=== PATIENT | male | born 1995 | race Hispanic/Latino ===

== ENCOUNTER 2017-07-14 19:41 | Emergency (ER) | payer OTHER ==
[2017-07-14] MEDS ORDERED: NA CHLORIDE 0.9% 1,000 ML ONE ×2 (21:25→22:15)
[2017-07-14 21:51] LABS: Absolute Lymphocytes (CBC) 2.1 K/uL (0.7-4.9); Absolute Monocytes 1.1 K/uL (0.1-1.3); Absolute Neutrophil 11.1 K/uL (1.8-8.0); Basophils % 0.7 % (0-1.3); Eosinophils % 0.1 % (0-4.4); Hematocrit 41.3 % (39.6-49.0); Lymphocytes % 14.3 % (15.3-44.8); MCH 27.6 pg (27.0-35.0); MCV 80.2 fL (80-100); MPV 10.3 fL (7.6-11.3); Monocytes % 7.4 % (3.3-12.3); RBC Red Blood Cell Count 5.16 M/uL (4.33-5.43)
[2017-07-14 22:04] LABS: Bicarbonate 24 mEq/L (21-31); Glucose Level 98 mg/dL (65-120); Lipase 16 U/L (22-51); Potassium 3.2 mEq/L (3.6-5.0); Sodium Level 136 mEq/L (135-145)
[2017-07-14] MEDS ORDERED: ACETAMINOPHEN 500 MG TAB ONE (22:09)
[2017-07-14] MEDS ORDERED: AZITHROMYCIN 500 MG/250 ML BAG ONE (22:09)
[2017-07-14] MEDS ORDERED: ONDANSETRON 4 MG/2 ML VIAL ONE (22:09)
[2017-07-14] MEDS ORDERED: CEFTRIAXONE/SWI 1gm 1 GM/10 ML SYR ONE (22:09)
[2017-07-14 22:11] LABS: ALT/SGPT 21 IU/L (10-60); AST/SGOT 21 IU/L (10-42); Albumin 4.6 g/dL (3.2-5.5); Alkaline Phosphatase 87 IU/L (42-121); Amylase Level 66 U/L (28-100); BUN Blood Urea Nitrogen 11 mg/dL (6-20); Bilirubin Direct 0.2 mg/dL (0-0.2); Protein, Total 8.6 g/dL (6.0-8.3)
[2017-07-14] MEDS ORDERED: PROMETHAZINE 25 MG/ML VIAL ONE (22:15)
--- NOTE | 2017-07-14 22:41 | RAD REPORT ---
EXAM DESCRIPTION: RAD - Chest Pa And Lat (2 Views) - 07/14/2017 10:06 pm CLINICAL HISTORY: Vomiting, chills COMPARISON: 04/26/2017 FINDINGS: Vague ill-defined opacity is present in the left lower lobe posteriorly, suspicious for de veloping pneumonia. The lungs are otherwise clear. The heart is normal in size. No displaced fracture s. IMPRESSION: Mild developing posterior left lower lobe pneumonia suspected.
[2017-07-14] MEDS ORDERED: KCL 20 MEQ/100 mL IVPB 20 MEQ/100 ML BAG IV ONE (22:54)
[2017-07-14 23:28] LABS: Urine Blood NEGATIVE (NEG); Urine Glucose NEGATIVE (NEG); Urine Protein 1+ (NEG); Urine Specific Gravity 1.015 (1.005-1.030); Urine pH 8.5 (5.0-7.0)
--- NOTE | 2017-07-14 23:53 | ER ---
Nurse's Notes [facility] Name: Torsten Palomo Age: 21 yrs Sex: Male : 1995 Arrival Date: 07/14/2017 Time: 19:44 Bed 5 Private MD: Diagnosis: Vomiting;Fever, unspecified;Cough;Pneumonia due to other specified bacteria;Hypokalemia;Elevated white blood cell count Presentation: 07/14 20:10 Presenting complaint: Patient states: Chills for 4 days, vomiting that started today. aj Transition of care: patient was not received from another setting of care. Onset of symptoms was July 14, 2017. Initial Sepsis Screen: Does the patient meet any 2 criteria? No. Patient's initial sepsis screen is negative. Does the patient have a suspected source of infection? No. Patient's initial sepsis screen is negative. Care prior to arrival: None. 20:10 Method Of Arrival: Ambulatory aj 20:10 Acuity: AZUCENA 3 aj Triage Assessment: 20:11 General: Appears in no apparent distress. comfortable, Behavior is calm, cooperative, aj appropriate for age. Pain: Complains of pain in abdomen Pain currently is 9 out of 10 on a pain scale. Neuro: Level of Consciousness is awake, alert, obeys commands, Oriented to person, place, time, situation, Appropriate for age. Respiratory: Reports cough that is Airway is patent Respiratory effort is even, unlabored, Respiratory pattern is regular, symmetrical. GI: Reports nausea, vomiting. Derm: Skin is intact, is healthy with good turgor, Skin is pink, warm \T\ dry. normal. Historical: - Allergies: 20:11 No Known Allergies; aj - Home Meds: 20:11 None [Active]; aj - PMHx: 20:11 None; aj - PSHx: 20:11 None; aj - Immunization history:: Adult Immunizations unknown. - Social history:: Smoking status: Patient/guardian denies using tobacco. Screenin:23 Abuse screen: Denies threats or abuse. Denies injuries from another. Nutritional bp screening: No deficits noted. Tuberculosis screening: No symptoms or risk factors identified. Fall Risk None identified. Assessment: 21:21 General: Appears in no apparent distress. uncomfortable, ill, slender, Behavior is bp calm, cooperative, appropriate for age. Pain: Complains of pain in epigastric area Pain currently is 9 out of 10 on a pain scale. Neuro: Level of Consciousness is awake, alert, obeys commands, Oriented to person, place, time, situation, Appropriate for age. Cardiovascular: No deficits noted. Respiratory: Airway is patent Respiratory effort is even, unlabored, Respiratory pattern is regular, symmetrical. GI: Abdomen is non-distended, Bowel sounds present X 4 quads. Abd is soft X 4 quads. : No signs and/or symptoms were reported regarding the genitourinary system. EENT: No deficits noted. Derm: No deficits noted. Musculoskeletal: Circulation, motion, and sensation intact. Range of motion: intact in all extremities. 07/15 00:05 Reassessment: PT D/C HOME AMBULATORY WITH FAMILY, DX WITH VOMITING AND PNEUMONIA. bp Vital Signs: 07/14 20:11 BP 134 / 79; Pulse 76; Resp 16; Temp 100.6; Pulse Ox 97% on R/A; Weight 74.84 kg; aj Height 6 ft. 1 in. (185.42 cm); Pain 9/10; 23:04 BP 104 / 61; Pulse 87; Resp 14; Pulse Ox 95% ; bp 23:32 BP 96 / 67; Pulse 83; Resp 14; Pulse Ox 96% ; bp 20:11 Body Mass Index 21.77 (74.84 kg, 185.42 cm) aj ED Course: 19:44 Patient arrived in ED. ds1 20:11 Triage completed. aj 20:11 Arm band placed on right wrist. Patient placed in waiting room, Patient notified of aj wait time. 21:18 Robert Ayala, RN is Primary Nurse. bp 21:23 Patient has correct armband on for positive identification. Bed in low position. Call bp light in reach. Side rails up X2. Adult w/ patient. 21:30 Inserted saline lock: 20 gauge in right forearm, using aseptic technique. Blood bp collected. 21:35 Ted Garcia MD is Attending Physician. janet 22:03 Patient moved to radiology via wheelchair. kc2 22:03 X-ray completed. Patient tolerated procedure well. kc2 22:03 Patient moved back from radiology. kc2 22:05 Chest Pa And Lat (2 Views) XRAY In Process Unspecified. EDMS 22:[address] via wheelchair. vr 22:58 CT Abd/Pelvis - W/Contrast: iv only In Process Unspecified. EDMS 07/15 00:05 No provider procedures requiring assistance completed. IV discontinued, intact, bp bleeding controlled, No redness/swelling at site. Pressure dressing applied. Administered Medications: 07/14 21:38 Drug: NS 0.9% 1000 ml Route: IV; Rate: 1 bolus; Site: right forearm; bp 22:10 Drug: Tylenol 1000 mg Route: PO; bp 22:38 Follow up: Response: Vomiting increased bp 22:10 Drug: Rocephin - (cefTRIAXone) 1 grams Route: IVPB; Infused Over: 30 mins; Site: right bp forearm; 22:10 Drug: Zithromax 500 mg Route: IVPB; Infused Over: 1 hrs; Site: right forearm; bp 22:10 Drug: Zofran 4 mg Route: IVP; Site: right forearm; bp 22:38 Follow up: Response: Nausea unchanged bp 22:30 Drug: Phenergan 12.5 mg Route: IVP; Site: right forearm; bp 22:39 Follow up: Response: Nausea is decreased bp 23:10 Drug: Potassium Chloride 20 mEq Route: IV; Rate: per protocol; Site: right forearm; bp 23:10 Drug: NS 0.9% 1000 ml Route: IV; Rate: 1 bolus; Site: right forearm; bp Outcome: 23:52 Discharge ordered by MD. gonzales 07/15 00:06 Discharged to home ambulatory, with family. bp Condition: stable Discharge instructions given to patient. 00:07 Patient left the ED. bp Signatures: Dispatcher [employer] EDID Katie Rucker RN RN aj Anderson, Corey, MD MD cha Sanford, Demi ds1 Kim Case Kelsie kc2 Robert Ayala RN RN bp
--- NOTE | 2017-07-14 23:53 | EDPHYS ---
Physician Documentation [facility] Name: Torsten Palomo Age: 21 yrs Sex: Male : 1995 Arrival Date: 07/14/2017 Time: 19:44 Bed 5 Private MD: ED Physician Ted Garcia HPI: 07/14 21:48 This 21 yrs old Male presents to ER via Ambulatory with complaints of janet Vomiting, Chills. 21:48 The patient presents to the emergency department with nausea, vomiting. Onset: The janet symptoms/episode began/occurred 4 day(s) ago. Possible causes: unknown. Historical: - Allergies: 20:11 No Known Allergies; aj - Home Meds: 20:11 None [Active]; aj - PMHx: 20:11 None; aj - PSHx: 20:11 None; aj - Immunization history:: Adult Immunizations unknown. - Social history:: Smoking status: Patient/guardian denies using tobacco. ROS: 21:49 Eyes: Negative for injury, pain, redness, and discharge, ENT: Negative for injury, janet pain, and discharge, Neck: Negative for injury, pain, and swelling, Cardiovascular: Negative for chest pain, palpitations, and edema, Abdomen/GI: Negative for abdominal pain, nausea, vomiting, diarrhea, and constipation, Back: Negative for injury and pain, : Negative for injury, bleeding, discharge, and swelling, MS/Extremity: Negative for injury and deformity, Skin: Negative for injury, rash, and discoloration, Neuro: Negative for headache, weakness, numbness, tingling, and seizure, Psych: Negative for depression, anxiety, suicide ideation, homicidal ideation, and hallucinations, Allergy/Immunology: Negative for hives, rash, and allergies, Endocrine: Negative for neck swelling, polydipsia, polyuria, polyphagia, and marked weight changes, Hematologic/Lymphatic: Negative for swollen nodes, abnormal bleeding, and unusual bruising. 21:49 Constitutional: Positive for fever. 21:49 Abdomen/GI: Positive for abdominal pain, nausea and vomiting. Exam: 21:49 Constitutional: This is a well developed, well nourished patient who is awake, alert, janet and in no acute distress. Head/Face: Normocephalic, atraumatic. Eyes: Pupils equal round and reactive to light, extra-ocular motions intact. Lids and lashes normal. Conjunctiva and sclera are non-icteric and not injected. Cornea within normal limits. Periorbital areas with no swelling, redness, or edema. ENT: Nares patent. No nasal discharge, no septal abnormalities noted. Tympanic membranes are normal and external auditory canals are clear. Oropharynx with no redness, swelling, or masses, exudates, or evidence of obstruction, uvula midline. Mucous membranes moist. Neck: Trachea midline, no thyromegaly or masses palpated, and no cervical lymphadenopathy. Supple, full range of motion without nuchal rigidity, or vertebral point tenderness. No Meningismus. Chest/axilla: Normal chest wall appearance and motion. Nontender with no deformity. No lesions are appreciated. Cardiovascular: Regular rate and rhythm with a normal S1 and S2. No gallops, murmurs, or rubs. Normal PMI, no JVD. No pulse deficits. Abdomen/GI: Soft, non-tender, with normal bowel sounds. No distension or tympany. No guarding or rebound. No evidence of tenderness throughout. Back: No spinal tenderness. No costovertebral tenderness. Full range of motion. Male : Normal genitalia with no discharge or lesions. Skin: Warm, dry with normal turgor. Normal color with no rashes, no lesions, and no evidence of cellulitis. MS/ Extremity: Pulses equal, no cyanosis. Neurovascular intact. Full, normal range of motion. Neuro: Awake and alert, GCS 15, oriented to person, place, time, and situation. Cranial nerves II-XII grossly intact. Motor strength 5/5 in all extremities. Sensory grossly intact. Cerebellar exam normal. Normal gait. Psych: Awake, alert, with orientation to person, place and time. Behavior, mood, and affect are within normal limits. 21:49 Respiratory: the patient does not display signs of respiratory distress, Respirations: normal, Breath sounds: are clear throughout, Respiratory rate: 16 Vital Signs: 20:11 BP 134 / 79; Pulse 76; Resp 16; Temp 100.6; Pulse Ox 97% on R/A; Weight 74.84 kg; aj Height 6 ft. 1 in. (185.42 cm); Pain 9/10; 23:04 BP 104 / 61; Pulse 87; Resp 14; Pulse Ox 95% ; bp 23:32 BP 96 / 67; Pulse 83; Resp 14; Pulse Ox 96% ; bp 20:11 Body Mass Index 21.77 (74.84 kg, 185.42 cm) aj MDM: 21:35 Patient medically screened. [facility] 21:50 Data reviewed: vital signs, nurses notes, lab test result(s), radiologic studies, plain janet films. 07/14 21:23 Order name: Amylase, Serum; Complete Time: 22:37 bp 07/14 21:23 Order name: Basic Metabolic Panel; Complete Time: 22:37 bp 07/14 21:23 Order name: CBC with Diff; Complete Time: 22:37 bp 07/14 21:23 Order name: Creatinine for Radiology; Complete Time: 22:37 bp 07/14 21:23 Order name: Hepatic Function; Complete Time: 22:37 bp 07/14 21:23 Order name: Lipase; Complete Time: 22:37 bp 07/14 21:23 Order name: Urine Microscopic Only bp 07/14 21:48 Order name: Chest Pa And Lat (2 Views) XRAY; Complete Time: 22:42 [facility] 07/14 22:33 Order name: Urine Dipstick--Ancillary (enter results); Complete Time: 23:49 rg2 07/14 22:40 Order name: CT Abd/Pelvis - W/Contrast: iv only [facility] 07/14 22:40 Order name: Flu [facility] 07/14 21:23 Order name: IV Saline Lock; Complete Time: 21:38 bp 07/14 21:23 Order name: Labs collected and sent; Complete Time: 21:38 bp 07/14 21:23 Order name: Urine Dipstick-Ancillary (obtain specimen); Complete Time: 22:39 bp Administered Medications: 21:38 Drug: NS 0.9% 1000 ml Route: IV; Rate: 1 bolus; Site: right forearm; bp 22:10 Drug: Tylenol 1000 mg Route: PO; bp 22:38 Follow up: Response: Vomiting increased bp 22:10 Drug: Rocephin - (cefTRIAXone) 1 grams Route: IVPB; Infused Over: 30 mins; Site: right bp forearm; 22:10 Drug: Zithromax 500 mg Route: IVPB; Infused Over: 1 hrs; Site: right forearm; bp 22:10 Drug: Zofran 4 mg Route: IVP; Site: right forearm; bp 22:38 Follow up: Response: Nausea unchanged bp 22:30 Drug: Phenergan 12.5 mg Route: IVP; Site: right forearm; bp 22:39 Follow up: Response: Nausea is decreased bp 23:10 Drug: Potassium Chloride 20 mEq Route: IV; Rate: per protocol; Site: right forearm; bp 23:10 Drug: NS 0.9% 1000 ml Route: IV; Rate: 1 bolus; Site: right forearm; bp Disposition: 07/14/17 23:52 Discharged to Home. Impression: Vomiting, Fever, unspecified, Cough, Pneumonia due to other specified bacteria, Hypokalemia, Elevated white blood cell count. - Condition is Stable. - Discharge Instructions: Fever, Adult, Nausea and Vomiting, Pneumonia, Adult, Cool Mist Vaporizers, Nausea and Vomiting, [id number], Pneumonia, Adult, [id number], Cough, Adult, [id number], Cough, Adult, Hypokalemia. - Prescriptions for Zofran 4 mg Oral Tablet - take 1 tablet by ORAL route every 12 hours As needed; 20 tablet. Zithromax 500 mg Oral Tablet - take 1 tablet by ORAL route once daily for 5 days; 5 tablet. Albuterol Sulfate 90 mcg/actuation - inhale 1-2 puff by INHALATION route every 4-6 hours; 1 Inhaler. - Medication Reconciliation Form, Thank You Letter, Antibiotic Education, Prescription Opioid Use form. - Follow up: Private Physician; When: 2 - 3 days; Reason: Recheck today's complaints, Continuance of care, Re-evaluation by your physician. - Problem is new. - Symptoms have improved. Signatures: Dispatcher [employer] Katie Sykes RN RN aj Anderson, Corey, MD MD cha Peltier, Brian, RN RN bp Corrections: (The following items were deleted from the chart) 07/15 00:07 07/14 23:52 07/14/2017 23:52 Discharged to Home. Impression: Vomiting; Fever, bp unspecified; Cough; Pneumonia due to other specified bacteria; Hypokalemia; Elevated white blood cell count. Condition is Stable. Discharge Instructions: Fever, Adult, Nausea and Vomiting, Cool Mist Vaporizers, Nausea and Vomiting, [id number], Cough, Adult, [id number], Cough, Adult, Pneumonia, Adult, Pneumonia, Adult, [id number], Hypokalemia. Prescriptions for Zofran 4 mg Oral Tablet - take 1 tablet by ORAL route every 12 hours As needed; 20 tablet, Zithromax 500 mg Oral Tablet - take 1 tablet by ORAL route once daily for 5 days; 5 tablet. and Forms are Medication Reconciliation Form, Thank You Letter, Antibiotic Education, Prescription Opioid Use. Follow up: Private Physician; When: 2 - 3 days; Reason: Recheck today's complaints, Continuance of care, Re-evaluation by your physician. Problem is new. Symptoms have improved. janet
[2017-07-15 00:03] LABS: Urine Bacteria <20 /HPF (NONE SEEN); Urine Culture Reflex Order NOT NEEDED; Urine RBC <5 /HPF (NONE SEEN)
--- NOTE | 2017-07-15 08:35 | RAD REPORT ---
EXAM DESCRIPTION: CTAbdomen Pelvis W Contrast - 07/15/2017 7:27 am CLINICAL HISTORY: Abdominal pain. COMPARISON: None. TECHNIQUE: Biphasic CT imaging of the abdomen and pelvis was performed with 100 ml non-ionic IV cont rast. All CT scans are performed using dose optimization technique as appropriate and may include automated exposure control or mA/KV adjustment according to patient size. FINDINGS: Patchy airspace opacity is seen in posterior right lung base in the lateral left lung base compatible with pneumonia. The liver, spleen, pancreas, adrenal glands and kidneys are within normal limits. No bowel obstruction, free air, free fluid or abscess. The appendix is normal. No evidence of signi ficant lymphadenopathy. No suspicious bony findings. IMPRESSION: Bibasilar lung opacities, most compatible with pneumonia. No acute intra-abdominal or pelvic finding.
== END 2017-07-15 00:07 | disposition home or self-care (01) ==
LOC: ER 19:41
DX: J15.8 Pneumonia due to other specified bacteria (principal); R50.9 Fever, unspecified; R05 Cough; E87.6 Hypokalemia; D72.829 Elevated white blood cell count, unspecified
CPT/HCPCS: 36415; 71046; 74177; 80048; 80076; 81003; 81015; 82150; 83690; 85025; 87804; 96374; 96375; 99284; J0456; J0696; J2405; J2550; J7030; Q9967